=== PATIENT | female | born 1955 | race Caucasian/White ===

== ENCOUNTER 2024-01-29 16:37 | Inpatient (IN) | payer OTHER ==
[~2024-01-29] VITALS: Ht 152.4 cm; Wt 53.1 kg
[2024-01-29 16:55] VITALS: BP 111/56; PULSE 133; RESP 22; TEMP 99.9; O2SAT 100
[2024-01-29] MEDS: NACL 0.9% 500 ML IV ONE (17:48)
[2024-01-29] MEDS: NACL 0.9% 1,000 ML IV ONE (18:37)
[2024-01-29] MEDS ORDERED: MORPHINE SULFATE 2 MG/ML SYR IVP PRN (19:15)
[2024-01-29] MEDS ORDERED: VANCOMYCIN PER PHARMACY MC PRN (19:20)
[2024-01-29 19:31] LABS: BASOPHILS # (AUTO) 0.1 K/uL (0.00-0.22); BASOPHILS % (AUTO) 0.4 % (0.0-2.0); HEMATOCRIT 21.2 % (36-48); LYMPHOCYTES # (AUTO) 0.2 K/uL (2.5-16.5); LYMPHOCYTES % (AUTO) 1.6 % (20.5-51.1); MEAN CORPUSCULAR HEMOGLOBIN 25 pg (27-31); MEAN CORPUSCULAR HGB CONC 33 g/dL (33-37); MONOCYTES % (AUTO) 7.9 % (1.7-9.3); NEUTROPHILS % (AUTO) 90.1 % (42.2-75.2); PLATELET COUNT (AUTO) 259 K/uL (140-450); RED BLOOD CELL COUNT(AUTO) 2.75 MIL/uL (4.20-5.40); RED CELL DISTRIBUTION WIDTH 19.7 % (11.6-13.7); WHITE BLOOD COUNT (AUTO) 12.2 K/uL (4.8-10.8)
[2024-01-29] MEDS ORDERED: ACETAMINOPHEN 160 MG/5 ML UDC ONE (19:35)
[2024-01-29] MEDS: ACETAMINOPHEN 160 MG/5 ML UDC GT ONE (19:42)
[2024-01-29 19:49] LABS: ALBUMIN 1.7 g/dL (3.4-5.0); ANION GAP 11.5 (8-16); CALCIUM 9.4 mg/dL (8.5-10.1); CARBON DIOXIDE 24.2 mmol/L (21-32); CREATININE 0.7 mg/dL (0.6-1.3); TOTAL BILIRUBIN 0.4 mg/dL (0.0-1.0); TOTAL PROTEIN, SERUM 6.1 g/dL (6.4-8.2)
[2024-01-29 19:51] LABS: POTASSIUM 2.7 mmol/L (3.5-5.1)
[2024-01-29 19:55] LABS: LACTIC ACID 2.4 mmol/L (0.4-2.0)
[2024-01-29] MEDS ORDERED: PIPERACILLIN/TAZOBACTAM 3.375 GM VIAL IV ONE (19:59)
[2024-01-29] MEDS: PIPERACILLIN/TAZOBACTAM 3.375 GM in DEXTROSE 5% 50 ML IV ONE (20:07)
[2024-01-29 20:20] VITALS: O2SAT 99
[2024-01-29] MEDS ORDERED: PANT40EC56 GT (20:26)
[2024-01-29] MEDS ORDERED: METO5SOL78 GT (20:26)
[2024-01-29] MEDS ORDERED: LANTUS SUBQ (20:26)
[2024-01-29] MEDS ORDERED: ATOR20TA GT (20:26)
[2024-01-29] MEDS ORDERED: VANCOMYCIN 1,000 MG VIAL ONE (20:28)
[2024-01-29 20:42] VITALS: PULSE 107; RESP 22; O2SAT 99
[2024-01-29] MEDS: VANCOMYCIN 1,000 MG in DEXTROSE 5% 250 ML IV ONE (20:50)
[2024-01-29] MEDS: NACL 0.9% 1,000 ML IV SCH (21:59)
[2024-01-29] MEDS: KCL 20 MEQ IN 100 mL PREMIX 200 ML IV ONE (21:59)
[2024-01-30 00:29] LABS: APPEARANCE,URINE CLEAR (CLEAR); BILIRUBIN,URINE NEGATIVE (NEGATIVE); BLOOD, URINE NEGATIVE (NEGATIVE); COLOR,URINE YELLOW (YELLOW); LEUKOCYTE ESTERASE ,URINE NEGATIVE (NEGATIVE); NITRITE, URINE NEGATIVE (NEGATIVE); PROTEIN,URINE NEGATIVE (NEGATIVE); UGLUCOSE 2+ (NEGATIVE); UROBILINOGEN,URINE 0.2 EU/dL (0.2 - 1)
[2024-01-30 00:45] LABS: BACTERIA,URINE OCCASSIONAL /HPF (None Seen); RBC,URINE 0-5 /HPF (0-5); SQUAMOUS EPITHELIAL CELL,UR 4-10 (MOD) /LPF (0-3 (FEW))
[2024-01-30] MEDS ORDERED: KCL 20 MEQ IN 100 mL PREMIX 100 ML IV ONE (01:02)
[2024-01-30] MEDS ORDERED: PIPERACILLIN/TAZOBACTAM 3.375 GM VIAL IV ONE (04:49)
[2024-01-30] MEDS: PIPERACILLIN/TAZOBACTAM 3.375 GM in DEXTROSE 5% 50 ML IV SCH (04:58)
[2024-01-30 08:24] LABS: ANION GAP 10.1 (8-16); CALCIUM 9.1 mg/dL (8.5-10.1); CARBON DIOXIDE 23.2 mmol/L (21-32); CREATININE 0.6 mg/dL (0.6-1.3); POTASSIUM 3.3 mmol/L (3.5-5.1)
[2024-01-30 09:00] VITALS: PULSE 101; RESP 18; O2SAT 100
[2024-01-30 09:25] LABS: BASOPHILS # (AUTO) 0.1 K/uL (0.00-0.22); BASOPHILS % (AUTO) 0.4 % (0.0-2.0); EOSINOPHILS # (AUTO) 0.1 K/uL (0-0.4); EOSINOPHILS % (AUTO) 0.6 % (0.0-4.0); HEMATOCRIT 26.3 % (36-48); HEMOGLOBIN 8.3 g/dL (12.0-16.0); LYMPHOCYTES # (AUTO) 0.4 K/uL (2.5-16.5); LYMPHOCYTES % (AUTO) 2.4 % (20.5-51.1); MEAN CORPUSCULAR HEMOGLOBIN 25 pg (27-31); MEAN CORPUSCULAR HGB CONC 32 g/dL (33-37); MEAN CORPUSCULAR VOLUME 79.4 fL (80-94); MONOCYTES # (AUTO) 1.4 K/uL (0.8-1.0); MONOCYTES % (AUTO) 9.6 % (1.7-9.3); NEUTROPHILS # (AUTO) 12.8 K/uL (1.8-7.7); PLATELET COUNT (AUTO) 266 K/uL (140-450); RED BLOOD CELL COUNT(AUTO) 3.31 MIL/uL (4.20-5.40); RED CELL DISTRIBUTION WIDTH 19.8 % (11.6-13.7); WHITE BLOOD COUNT (AUTO) 14.7 K/uL (4.8-10.8)
[2024-01-30] MEDS: VANCOMYCIN 500 MG in DEXTROSE 5% 100 ML IV SCH (09:52)
[2024-01-30 12:00] VITALS: BP 150/76; PULSE 87; RESP 16; TEMP 98.9; O2SAT 100
[2024-01-30 15:09] VITALS: O2SAT 98
[2024-01-30] MEDS: POTASSIUM CHLORIDE 40 MEQ, LIDOCAINE 1% 25 MG in NACL 0.9% 250 ML IV ONE (15:18)
[2024-01-30 16:00] VITALS: BP 142/83; PULSE 97; RESP 16; TEMP 99.4; O2SAT 99
[2024-01-30] MEDS ORDERED: INSULIN LISPRO SLIDING SCALE 100 UNITS/ML VIAL SUBQ PRN (18:15)
[2024-01-30] MEDS ORDERED: DEXTROSE 50% 50 ML SYR IVP PRN ×2 (18:15→20:10)
[2024-01-30 20:00] VITALS: BP 133/68; PULSE 92; RESP 20; TEMP 98.9; O2SAT 100
[2024-01-30 21:00] VITALS: O2SAT 98
[2024-01-30] MEDS ORDERED: BLOOD GLUCOSE MONITORING 1 DEV DEV FS SCH (21:00)
[2024-01-30] MEDS: BLOOD GLUCOSE MONITORING 1 DEV DEV FS SCH (21:24)
[2024-01-30] MEDS: MEDS-TO-BEDS MC SCH (21:25)
[2024-01-31] VITALS (13 sets, daily range): BP systolic 110–150; BP diastolic 31–78; PULSE 78–97; RESP 16–25; TEMP 97.2–98.8; O2SAT 96–100
[2024-01-31] MEDS: INSULIN LANTUS 100 UNITS/ML 10 ML VIAL SUBQ SCH (09:00)
[2024-01-31] MEDS: VANCOMYCIN 750 MG in DEXTROSE 5% 250 ML IV SCH (12:01)
[2024-02-01] VITALS (11 sets, daily range): BP systolic 122–138; BP diastolic 61–82; PULSE 85–96; RESP 6–20; TEMP 97.3–100.4; O2SAT 96–100
[2024-02-01] MEDS: ACETAMINOPHEN 325 MG TAB PO PRN (01:36)
[2024-02-01] MEDS: INSULIN LISPRO SLIDING SCALE 100 UNITS/ML VIAL SUBQ PRN (06:25)
[2024-02-01 09:31] LABS: ALBUMIN 1.5 g/dL (3.4-5.0); CALCIUM 7.8 mg/dL (8.5-10.1); CARBON DIOXIDE 24.8 mmol/L (21-32); CREATININE 0.6 mg/dL (0.6-1.3); TOTAL BILIRUBIN 0.4 mg/dL (0.0-1.0); TOTAL PROTEIN, SERUM 6.1 g/dL (6.4-8.2)
[2024-02-01 09:34] LABS: POTASSIUM 2.8 mmol/L (3.5-5.1)
[2024-02-01 09:38] LABS: HEMATOCRIT 21.9 % (36-48); HEMOGLOBIN 7.3 g/dL (12.0-16.0); MEAN CORPUSCULAR HEMOGLOBIN 25 pg (27-31); MEAN CORPUSCULAR HGB CONC 34 g/dL (33-37); MEAN CORPUSCULAR VOLUME 75.4 fL (80-94); PLATELET COUNT (AUTO) 270 K/uL (140-450); RED CELL DISTRIBUTION WIDTH 19.8 % (11.6-13.7); WHITE BLOOD COUNT (AUTO) 14.9 K/uL (4.8-10.8)
[2024-02-01 09:45] LABS: EOSINOPHILS % (MANUAL) 1 % (0-4)
[2024-02-01 09:46] LABS: LYMPHOCYTES % (MANUAL) 3 % (20-46); MONOCYTES % (MANUAL) 7 % (5-12)
[2024-02-01] MEDS: ONDANSETRON 4 MG/2 ML VIAL IVP PRN (10:33)
[2024-02-01] MEDS ORDERED: KCL 20 MEQ IN 100 mL PREMIX 200 ML IV ONE (11:05)
[2024-02-01] MEDS: KCL 20 MEQ IN 100 mL PREMIX 200 ML IV ONE (12:35)
[2024-02-01] MEDS: KCL 20 MEQ IN 100 mL PREMIX 100 ML IV SCH (16:38)
[2024-02-02] VITALS (8 sets, daily range): BP systolic 104–118; BP diastolic 68–74; PULSE 89–98; RESP 17–20; TEMP 96.9–98; O2SAT 9–100
[2024-02-02 11:56] LABS: MEAN CORPUSCULAR HEMOGLOBIN 25 pg (27-31)
[2024-02-02 11:58] LABS: ANION GAP 9.2 (8-16); CALCIUM 7.3 mg/dL (8.5-10.1); CARBON DIOXIDE 25.5 mmol/L (21-32); CREATININE 0.6 mg/dL (0.6-1.3)
[2024-02-02 12:07] LABS: POTASSIUM 2.7 mmol/L (3.5-5.1)
[2024-02-02 13:04] LABS: HEMATOCRIT 20.3 % (36-48); MEAN CORPUSCULAR VOLUME 75.5 fL (80-94); RED BLOOD CELL COUNT(AUTO) 2.68 MIL/uL (4.20-5.40)
[2024-02-02 13:05] LABS: MEAN CORPUSCULAR HGB CONC 34 g/dL (33-37); PLATELET COUNT (AUTO) 252 K/uL (140-450); RED CELL DISTRIBUTION WIDTH 19.8 % (11.6-13.7)
[2024-02-02 13:07] LABS: HEMOGLOBIN 6.8 g/dL (12.0-16.0)
[2024-02-02 13:22] LABS: LYMPHOCYTES % (AUTO) 2.1 % (20.5-51.1); NEUTROPHILS % (AUTO) 91.3 % (42.2-75.2)
[2024-02-02 13:23] LABS: BASOPHILS % (AUTO) 0.2 % (0.0-2.0); EOSINOPHILS % (AUTO) 0.1 % (0.0-4.0); LYMPHOCYTES # (AUTO) 0.3 K/uL (2.5-16.5); MONOCYTES % (AUTO) 6.3 % (1.7-9.3); NEUTROPHILS # (AUTO) 11.7 K/uL (1.8-7.7)
[2024-02-02 13:24] LABS: MONOCYTES # (AUTO) 0.8 K/uL (0.8-1.0); PLATELET COUNT,MANUAL 252 K/uL (150-450)
[2024-02-02] MEDS: POTASSIUM CHLORIDE 10 MEQ TABER PO SCH ×2 (13:24→17:35)
[2024-02-02 13:27] LABS: WHITE BLOOD COUNT (AUTO) 12.8 K/uL (4.8-10.8)
[2024-02-02 21:46] LABS: HEMATOCRIT 22.5 % (36-48); HEMOGLOBIN 7.6 g/dL (12.0-16.0)
[2024-02-03] VITALS (8 sets, daily range): BP systolic 124–171; BP diastolic 60–95; PULSE 91–110; RESP 18–19; TEMP 98.5–99.8; O2SAT 9–100
[2024-02-03 09:09] LABS: BASOPHILS % (AUTO) 0.2 % (0.0-2.0); EOSINOPHILS # (AUTO) 0.1 K/uL (0-0.4); EOSINOPHILS % (AUTO) 0.5 % (0.0-4.0); HEMATOCRIT 23.3 % (36-48); HEMOGLOBIN 7.8 g/dL (12.0-16.0); LYMPHOCYTES # (AUTO) 0.3 K/uL (2.5-16.5); LYMPHOCYTES % (AUTO) 2.4 % (20.5-51.1); MEAN CORPUSCULAR HEMOGLOBIN 26 pg (27-31); MEAN CORPUSCULAR HGB CONC 34 g/dL (33-37); MEAN CORPUSCULAR VOLUME 77.7 fL (80-94); MONOCYTES # (AUTO) 0.9 K/uL (0.8-1.0); NEUTROPHILS # (AUTO) 12.1 K/uL (1.8-7.7); NEUTROPHILS % (AUTO) 89.9 % (42.2-75.2); PLATELET COUNT (AUTO) 257 K/uL (140-450); WHITE BLOOD COUNT (AUTO) 13.5 K/uL (4.8-10.8)
[2024-02-03 09:22] LABS: ANION GAP 8.8 (8-16); CALCIUM 7.3 mg/dL (8.5-10.1); CARBON DIOXIDE 26.2 mmol/L (21-32); CREATININE 0.6 mg/dL (0.6-1.3)
[2024-02-03] MEDS ORDERED: LEVO750T75 GT (15:34)
[2024-02-03] MEDS: POTASSIUM CHLORIDE 10 MEQ TABER PO SCH (18:03)
[2024-02-03] MEDS ORDERED: VANCOMYCIN PER PHARMACY MC PRN (18:05)
[2024-02-03] MEDS: KCL 20 MEQ IN 100 mL PREMIX 200 ML IV ONE (18:36)
[2024-02-04] VITALS (8 sets, daily range): BP systolic 124–135; BP diastolic 60–67; PULSE 94–99; RESP 17–19; TEMP 97.2–99; O2SAT 98–100
[2024-02-04 06:50] LABS: ANION GAP 10.1 (8-16); CREATININE 0.5 mg/dL (0.6-1.3); POTASSIUM 3.1 mmol/L (3.5-5.1)
[2024-02-04] MEDS: KCL 20 MEQ IN 100 mL PREMIX 100 ML IV SCH (10:21)
== END 2024-02-04 17:45 | disposition home or self-care (01) | DRG 137 ==
LOC: MED 16:37 → MMU 19:18 → MTU 01-30 06:55
PROVIDERS: ADMIT Hospitalist; ATTEND Hospitalist
PROC: 02HV33Z Insertion of Infusion Device into Superior Vena Cava, Percutaneous Approach (ICD-10-PCS; 2024-02-01)
PROC: B548ZZA Ultrasonography of Superior Vena Cava, Guidance (ICD-10-PCS; 2024-02-01)
PROC: 30233N1 Transfusion of Nonautologous Red Blood Cells into Peripheral Vein, Percutaneous Approach (ICD-10-PCS; principal; 2024-02-02)
DX: J15.69 Pneumonia due to other Gram-negative bacteria (principal); J96.21 Acute and chronic respiratory failure with hypoxia; E44.0 Moderate protein-calorie malnutrition; J44.0 Chronic obstructive pulmonary disease with (acute) lower respiratory infection; Z93.0 Tracheostomy status; Z79.899 Other long term (current) drug therapy; J15.9 Unspecified bacterial pneumonia; Z68.22 Body mass index [BMI] 22.0-22.9, adult
CPT/HCPCS: 36415; 71045; 80048; 80053; 80202; 81001; 82948; 83605; 83735; 83880; 84484; 85018; 85025; 86886; 86900; 86901; 86920; 87040; 87070; 87081; 87086; 87205; 93005; 96361; 96365; 96367; 99291; J1815; J2001; J2405; J2543; J3370; J3480; J7030; J7060; P9016